=== PATIENT | male | born 1945 | race Caucasian/White ===

== ENCOUNTER 2022-11-02 14:21 | Emergency (ER) | payer MEDICARE ==
[2022-11-02 15:05] LABS: #Basophils 0.1 10x3/uL (0.0-0.2); #Eosinphils 0.5 10x3/uL (0.0-0.5); #Monocytes 0.4 10x3/uL (0.0-1.1); #Neutrophils 4.2 10x3/uL (1.5-8.4); %Basophils 0.7 % (0.0-2.0); %Lymphocytes 23.5 % (18.0-47.0); %Monocytes 6.3 % (0.0-10.0); %Neutrophils 62.2 % (40.0-75.0); Hemoglobin 12.7 g/dL (13.5-17.5); Mean Corpuscular Hemoglobin 28.3 pg (27.0-33.0); Mean Corpuscular Volume 85.9 fl (81.2-95.1); Mean Platelet Volume 11.1 fl (7.4-10.4); Platelet Count 246 10x3/uL (150-450); RBC Distribution Width 14.3 % (11.5-14.5); Red Blood Cell (RBC) Count 4.48 10x6/uL (4.32-5.72); White Blood Cell (WBC) Count 6.7 10x3/uL (3.5-10.5)
[2022-11-02 15:20] LABS: ALT (SGPT) 21 U/L (8-55); AST (SGOT) 28 U/L (5-34); Albumin 4.2 g/dL (3.4-4.8); Alkaline Phosphatase 68 U/L (40-110); Anion Gap 14 mmol/L (10-20); BUN (Urea Nitrogen) 29 mg/dL (8.4-25.7); Bilirubin, Total 0.3 mg/dL (0.2-1.2); Calc. Creatinine Clearance 0 mL/min (70-130); Calcium 9.6 mg/dL (7.8-10.44); Carbon Dioxide 28 mmol/L (23-31); Chloride 97 mmol/L (98-107); Estimated GFR 32; Globulin 2.7 g/dL (2.4-3.5); Glucose 105 mg/dL (83-110); Potassium 4.8 mmol/L (3.5-5.1); Protein, Total 6.9 g/dL (5.8-8.1); Sodium 134 mmol/L (136-145)
[2022-11-02] MEDS ORDERED: Ipratropium/Albuterol 3 ML NEB ONE ×3 (15:52→17:48)
[2022-11-02] MEDS ORDERED: hydrALAZINE 20 MG/ML VIAL ONE (17:56)
[2022-11-02] MEDS ORDERED: Nitroglycerin 0.4 MG TAB 1 EACH ONE (17:56)
[2022-11-02] MEDS ORDERED: Nitroglycerin 2% Ointment 1 INCH/1 GM Packet ONE (17:57)
== END 2022-11-02 18:32 ==
LOC: CSHERS 14:21
DX: R09.02 Hypoxemia (principal); J90 Pleural effusion, not elsewhere classified; R91.8 Other nonspecific abnormal finding of lung field; R06.02 Shortness of breath; I13.0 Hypertensive heart and chronic kidney disease with heart failure and stage 1 through stage 4 chronic kidney disease, or unspecified chronic kidney disease; I50.9 Heart failure, unspecified; N18.9 Chronic kidney disease, unspecified; J44.9 Chronic obstructive pulmonary disease, unspecified; Z79.899 Other long term (current) drug therapy
CPT/HCPCS: 71045; 71275; 80053; 83605; 83880; 84484; 85025; 93005; 94640 ×2; 94760; 96374; 99285; J0360; 36415; J7620

== ENCOUNTER 2023-05-28 10:42 | Outpatient (CLI) | payer MEDICARE, BC ==
[~2023-05-28 10:42] MED LIST: Magnevist 469MG/ML 20 ML VIAL ONE
== END 2023-05-28 10:43 | disposition home or self-care (01) ==
LOC: CSHMRI 10:42
PROVIDERS: ATTEND Internal Medicine Hematology & Oncology
DX: C34.90 Malignant neoplasm of unspecified part of unspecified bronchus or lung (principal); C34.01 Malignant neoplasm of right main bronchus
CPT/HCPCS: 70553; 78815; 82565; A9552; A9579